=== PATIENT | female | born 1950 | race Caucasian/White ===

== ENCOUNTER 2016-12-22 13:58 | Emergency (ER) | payer MEDICARE, BC ==
--- NOTE | 2016-12-22 14:41 | ERNOTE ---
Lower Extremity HPI - Narrative Date of Service: 12/22/16 - General Lower Extremities Pain: knee: left - pain and going down stairs most painful Time Seen by Provider: 12/22/16 14:26 Source: patient Exam Limitations: clinical condition, physical impairment - walking is - Immun/Allergies/Home Medications Immunizations: IMMUNIZATION HX Immunizations Up to Date Yes History of Influenza Vaccine Yes Allergies/Adverse Reactions: Allergies Allergy/AdvReac Type Severity Reaction Status Date / Time No Known Allergies Allergy Verified 12/22/16 14:10 Home Medications: HOME MEDICATIONS amLODIPine BESYLATE [Norvasc] 5 mg PO DAILY 02/09/15 [Last Taken Unknown] Aspirin 325 mg PO DAILY 12/22/16 [Last Taken Unknown] Calcium Carbonate [Calcium] 500 mg PO DAILY 12/22/16 [Last Taken Unknown] Diclofenac Sodium [Diclofenac Sodium ER] 100 mg PO DAILY #14 tab.er.24h [Last Taken Unknown] Multivitamins [Multivitamin King] 1 cap PO DAILY 12/22/16 [Last Taken Unknown] Ranitidine HCl [Zantac] 150 mg PO BID 12/22/16 [Last Taken Unknown] - History of Present Illness Narrative: patient is having left knee pain x 2 weeks has tried tylenol no relief, has tried aleve this helps for short term but does not help in am, very stiff. Denies trauma, denies hx of gout, arthritis, prior surgery or injury Date (Duration): 12/01/16 Time (Timing): 08:00 Occurred: just prior to arrival, other - today was worse and knee more swollen Location of Incident: home Method of Injury: Reports: no apparent injury Modifying Factors - (Worsens): Reports: other - walking down steps Associated Symptoms: Reports: popping sensation Subsequent Symptoms: Reports: other - swelling and stiffness in am Prior Treament: Reports: other - tried tylenol and aleve Review of Systems - Review of Systems Constitutional: Present: no symptoms reported EYE: Present: no symptoms reported ENT: Present: no symptoms reported Respiratory: Present: no symptoms reported Cardiology: Present: no symptoms reported Gastrointestinal/Abdominal: Present: no symptoms reported Genitourinary: Present: no symptoms reported Musculoskeletal: Present: See HPI, joint pain, joint swelling, other - no risk factors for blood clots, no family history of blood clots Neurological: Present: no symptoms reported Endocrine: Present: no symptoms reported Hematologic/Lymphatic: Present: no symptoms reported All Other Systems: All systems neg except as marked - Narrative Narrative: reviewed pmh, pshx, soc hx, allergies, medications, fam hx - Patient's Past Medical History Patient History - Medical: No pertinent hx Patient History - Cardiac/Respiratory: No pertinent hx Patient History - Cancer: No Hx of Cancer Patient History - Surgical Procedures: Colonoscopy Patient History - Other: None - Social History Psych History: No pertinent hx Alcohol Use: none Drug Use: none - Immunizations Immunizations Up to Date: Yes History of Influenza Vaccine: Yes Physical Exam - Physical Exam General Appearance: Present: wd/wn, alert, no apparent distress Eye Exam: Normal inspection: bilateral, PERRL: bilateral, EOMI: bilateral Ears, Nose, Throat: Present: normal ENT inspection Neck: Present: normal inspection, nontender Respiratory: Present: no respiratory distress, normal breath sounds, no accessory muscle use, lungs clear Cardiovascular/Chest: Present: regular rate, rhythm, no murmur, normal peripheral pulses Gastrointestinal/Abdominal: Present: other - not examined Back Exam: Present: normal inspection, normal range of motion, no CVA tenderness , other - mild kyphosis thoracic spine Extremity Exam: Present: joint swelling - notable swelling, , other - pivot test neg for meniscal injury, ant / post drawer sign negative, joint swelling not noted posterior nor in calf, no calf tenderness. Neurological Exam: Present: alert, oriented, normal mood/affect Skin Exam: Present: normal color, warm/dry Lymphatic Exam: Present: no adenopathy ED Progress - Date and Time Seen: Date and Time: 12/22/16 15:24 states no pain now - Vital Signs Patient's Vital Signs:: I have reviewed the patient's vital signs. Vital Signs: Vital Signs 12/22/16 14:02 Temperature 36.7 C Pulse Rate 93 Respiratory 14 Rate Blood Pressure 157/107 O2 Sat by Pulse 97 Oximetry - X-Ray X-Ray #1 X-Ray: knee Interpretation: Interp. by me, Reviewed by me, Cari w/ radiologist - Progress/Reassessment Chief Complaint: Lower Extremity Pain/ Injury Progress:: Improved Plan - Plan Plan: stable for discharge no pain Departure Clinical Impression: Bursitis disorder Qualifiers: Bursitis location: knee Knee bursitis location: suprapatellar bursitis Laterality: left Qualified Code(s): M70.52 - Other bursitis of knee, left knee Arthritis of knee, degenerative Qualifiers: Osteoarthritis type: primary Laterality: left Qualified Code(s): M17.12 - Unilateral primary osteoarthritis, left knee - Departure Disposition: [facility] Additional Instructions: use ice as needed to reduce pain Referrals: Flako Ty MD [Primary Care Provider] - Prescriptions: Diclofenac Sodium [Diclofenac Sodium ER] 100 mg PO DAILY #14 tab.er.24h
[2016-12-22 15:33] VITALS: BP 148/105
== END 2016-12-22 15:34 | disposition home or self-care (01) ==
LOC: ER 13:58
DX: M70.52 Other bursitis of knee, left knee (principal); M17.12 Unilateral primary osteoarthritis, left knee